=== PATIENT | female | born 1975 ===

== ENCOUNTER 2018-07-13 09:25 | Inpatient (IN) | payer MEDICARE ==
[2018-07-13 09:25] VITALS: BMI 30.2
[2018-07-13] MEDS ORDERED: Silver Sulfadiazine 1% Cream (20 gm) TOP STA (09:59)
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
[2018-07-13 12:00] LABS: BASO # 0.1 K/uL (0.0-0.2); BASO % 1.1 % (0.0-2.0); EOS # 0.1 K/uL (0.0-0.7); EOS % 1.4 % (0.0-4.0); HEMOGLOBIN 13.2 g/dL (12.0-16.0); LYMPH # 1.9 K/uL (1.0-4.3); LYMPH % 20.8 % (20.0-40.0); MEAN CELL VOLUME 93.9 fl (81.0-99.0); MEAN CORPUSCULAR HEMOGLOBIN 31.5 pg (27.0-31.0); MEAN CORPUSCULAR HGB CONC 33.5 g/dL (33.0-37.0); MEAN PLATELET VOLUME 9.2 fl (7.2-11.7); MONO # 0.8 K/uL (0.0-0.8); MONO % 8.5 % (0.0-10.0); NEUT # 6.4 K/uL (1.8-7.0); NEUT % 68.2 % (50.0-75.0); NRBC % 0.1 % (0.0-0.0); RBC 4.18 Mil/uL (3.80-5.20); RED CELL DISTRIBUTION WIDTH 13.8 % (11.5-14.5); WHITE BLOOD COUNT 9.4 K/uL (4.8-10.8)
[2018-07-13 12:16] LABS: BARBITURATES, UR NEGATIVE (NEGATIVE); BENZODIAZEPINES, UR NEGATIVE (NEGATIVE); OPIATES, UR NEGATIVE (NEGATIVE); PHENCYCLIDINE, UR POSITIVE (NEGATIVE)
[2018-07-13] MEDS ORDERED: Silver Sulfadiazine 1% CREAM (50 gm) ONE (13:28)
--- NOTE | 2018-07-13 16:39 | RAD ---
Date of service: 07/13/2018 HISTORY: psych med clr COMPARISON: No prior. FINDINGS: LUNGS: No active pulmonary disease. PLEURA: No significant pleural effusion identified, no pneumothorax apparent. CARDIOVASCULAR: No aortic atherosclerotic calcification present. Normal cardiac size. No pulmonary vascular congestion. OSSEOUS STRUCTURES: No significant abnormalities. VISUALIZED UPPER ABDOMEN: Normal. OTHER FINDINGS: None. IMPRESSION: No active disease.
[2018-07-13] MEDS ORDERED: Magnesium Hydroxide Susp 30 ml UD PO PRN (19:08)
[2018-07-13] MEDS ORDERED: Alum-Mag Hydrox-Simethicone Susp (30 mL) PO PRN (19:08)
[2018-07-13] MEDS ORDERED: DiphenhydrAMINE 50 mg/ml Inj IM PRN (19:08)
--- NOTE | 2018-07-13 19:40 | PCM.BM ---
<Naveed Ward - Last Filed: 07/13/18 19:28> Treatment Plan Problems - Problems identified on initial assessmt Hopelessness/Helplessness Date Initiated: 07/13/18 Time Initiated: 18:00 Assessment reference: NA medication nonadherence Date Initiated: 07/13/18 Time Initiated: 18:00 Assessment reference: NA Schitzophrenia Spectrum Date Initiated: 07/13/18 Time Initiated: 18:00 Assessment reference: NA Self Care Deficit Date Initiated: 07/13/18 Time Initiated: 18:00 Assessment reference: NA Treatment assets and liabiliti Patient Assests: ADL independent, negotiates basic needs, good past tx response Patient Liabilities: live alone, poor support system, relationship conflicts, substance abuse - Milieu Protocol Maintain good personal hygiene: every shift Encourage regular showers, every shift Remind patient to perform daily oral care, every shift Assist patient to perform ADL's Maintain personal safety: every shift Educate patient to report safety concerns to staff, every shift Monitor environment for contraband/sharps Medication safety: Monitor for expected outcome, potential side effects: every shift, Assess barriers to learning: every shift, Assess readiness for medication education: every shift <Shweta Nassar - Last Filed: 07/17/18 14:30> - Diagnosis (1) Schizoaffective disorder Status: Acute Interventions: pharmacotherapy 07/17/18 14:29
--- NOTE | 2018-07-14 13:17 | CARD ---
APPROVED REPORT Date of service: 07/13/2018 EKG Measurement Heart [id number] <Conclusion> Normal sinus rhythm Prolonged QT Abnormal ECG
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
[2018-07-15 02:00] VITALS: O2SAT 97
--- NOTE | 2018-07-15 11:59 | PCM.PYCHPN ---
Psychiatric Progress Note - Psychiatric Progress Note Patient seen today, length of contact: pt seen and evaluated Patient Chief Complaint: pt has been less paranoid and less anxious and c/o decrease in hallucinations with risperdal .pt remains with poor insight and need further stabilization. Medication Change: Yes (increase risperdal ) Medical Record Reviewed: Yes Mental Status Examination - Cognitive Function Orientation: Person, Place, Situation Memory: Intact Attention: Poor Concentration: Poor Association: WNL Fund of Knowledge: WNL - Mood Mood: Anxious - Affect Affect: Flat - Formal Thought Process Formal Thought Process: Hallucinations, Paranoia - Suicidal Ideation Suicidal Ideation: No - Homicidal Ideation Homicidal Ideation: No Goal/Treatment Plan - Goal/Treatment Plan Progress Toward Problem(s) and Goals/Treatment Plan: Will continue to titrate up risperdal and trileptal as pt does not want to take depakote and engage pt in therapy. Hospitalist consult..
--- NOTE | 2018-07-16 17:06 | PCM.PYCHPN ---
Psychiatric Progress Note - Psychiatric Progress Note Patient seen today, length of contact: chart reviewed case discussed with team Patient Chief Complaint: was not taking medications due to forgetting and because she thought that she was doing better. pt is noted to require frequent redirection, pt has submitted a 48 hour notice, staff report pt is rx adherent Problems Identified/Issues Discussed: alteration in cognition alteration in self care Medical Problems: per chart Diagnostic Results: per psychiatry per medicine per nursing per social work per recreational therapy DSM 5 Symptoms Update: paranoia ?cognition Medication Change: No Medical Record Reviewed: Yes Consults ordered or reviewed: pt being seen by hospitalist Mental Status Examination - Cognitive Function Orientation: Person, Place, Situation Memory: Intact Attention: Poor Concentration: Poor Association: WNL Fund of Knowledge: WNL Decription of patient's judgement and insights: impaired - Mood Mood: Anxious - Affect Affect: Flat - Speech Speech: Soft - Formal Thought Process Formal Thought Process: Hallucinations, Paranoia - Suicidal Ideation Suicidal Ideation: No - Homicidal Ideation Homicidal Ideation: No Goal/Treatment Plan - Goal/Treatment Plan Progress Toward Problem(s) and Goals/Treatment Plan: inpt milieu adjust medications per clinical status-pt has submitted a 48 hour notice today 07/18/18 1430- reviewed with pt significance inlcuding possible screening for possible [place] [facility] [place] may withdraw 48 hour notice - will increase seroquel to 250mg-pt also admits that has difficulty sleeping reports that po hs, obtain ekg in am assess qtc interval -discontinue trazodone pt has prn order diphenahydramine discharge planning in progress Estimated Date of D/C: 07/18/18 - Smoking Cessation Smoking Cessation Initiated: No Reason for not providing: pt defers
--- NOTE | 2018-07-17 10:14 | PCM.PYCHPN ---
Psychiatric Progress Note - Psychiatric Progress Note Patient seen today, length of contact: chart reviewed case discussed with team Patient Chief Complaint: I want to leave Problems Identified/Issues Discussed: pt is 43 ys old female with previous diagnosis of schizoaffective disorder , cocaine use and PCP use disorder, has not been compliant with medications or follow up pt presented to ED having auditory hallucinations, suicidal ideation, pt urine toxicology is positive for PCP and cocaine on the unit pt is disheveled , not attending to personal hygiene , floridly psychotic, disorganized thought process, appears internally preoccupied, responding to internal stimuli, loose association, no insight into illness requesting to be discharged DSM 5 Symptoms Update: schizoaffective disorder bipolar type PCP abuse cocaine abuse Medication Change: Yes (increase risperidone ) Medical Record Reviewed: Yes Mental Status Examination - Cognitive Function Orientation: Person, Place, Situation Memory: Intact Attention: Poor Concentration: Poor Association: Loose Fund of Knowledge: Poor - Mood Mood: Anxious - Affect Affect: Flat - Speech Speech: Pressured - Formal Thought Process Formal Thought Process: Hallucinations, Paranoia - Suicidal Ideation Suicidal Ideation: No - Homicidal Ideation Homicidal Ideation: No Goal/Treatment Plan - Goal/Treatment Plan Need for Continued Stay: Remain at risks for inpatient hospitalization, Discharge may exacerbated symptoms Progress Toward Problem(s) and Goals/Treatment Plan: pt floridly psychotic , disorganized internally preoccupied requesting to be discharged , no insight into illness pt will be screened for involuntary admission as she needs further stabilization cross taper seroquel with risperidone gradually CBT group and supportive therapy Estimated Date of D/C: 07/19/18
[2018-07-17 13:24] LABS: SQUAMOUS EPITHIAL 10 /hpf (0-5); URINE BACTERIA OCC (<OCC); URINE BILIRUBIN NEGATIVE (NEGATIVE); URINE BLOOD NEGATIVE (NEGATIVE); URINE CLARITY CLOUDY (Clear); URINE COLOR YELLOW (YELLOW); URINE GLUCOSE (UA) NEG (NEGATIVE); URINE LEUKOCYTE ESTERASE NEG Leu/uL (Negative); URINE PROTEIN 30 mg/dL (NEGATIVE); URINE UROBILINOGEN 0.2-1.0 mg/dL (0.2-1.0)
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
[2018-07-17] MEDS: Silver Sulfadiazine 1% Cream (20 gm) TOP SCH (16:14)
[2018-07-18] MEDS: Silver Sulfadiazine 1% Cream (20 gm) TOP SCH (08:47)
[2018-07-18 09:13] VITALS: BP 140/85; PULSE 72; RESP 16; TEMP 97.5
--- NOTE | 2018-07-18 09:13 | PCM.PYCHDC ---
Mental Status Examination - Mental Status Examination Orientation: Person, Place, Situation Memory: Intact Mood: Neutral Affect: Broad Speech: Appropriate Attention: WNL Concentration: WNL Association: WNL Fund of Knowledge: WNL Formal Thought Process: Circumstantial Description of patient's judgement and insight: poor insight and judgment Suicidal Ideation: No Current Homicidal Ideation?: No Discharge Summary - Discharge Note Reason for Hospitalization: as per admission note This is a 43 yr old AA female with h/o schizoaffective disorder d/c from [facility] ago and has been noncompliant with meds saying that depakote causes blood in her stool and pt has been actively hallucinating and unable to take care of self and need inpt stabilization. Laboratory Data: Abnormal Lab Results 07/17/18 12:50 Urine Color Yellow Urine Clarity Cloudy Urine pH 6.0 Ur Specific [place] 1.020 Urine Protein 30 Urine Glucose (UA) Neg Urine Ketones Negative Urine Blood Negative Urine Nitrate Negative Urine Bilirubin Negative Urine Urobilinogen 0.2-1.0 Ur Leukocyte Esterase Neg Urine RBC (Auto) 5 H Urine Microscopic WBC 3 Ur Squamous Epith Cells 10 H Urine Bacteria Occ H Consultations:: List each consultation separately and include: 1. Reason for request. 2. Findings. 3. Follow-up Summary of Hospital Course include:: 1. Description of specific treatment plan utilized for patients during their course of treatmen. 2. Summarize the time- course for resolution of acute symptoms and/or regressed behaviors. 3. Describe issues identified and worked on during hospitalization. 4. Describe medication utilized. 5. Describe medical problems identified and treated. 6. Reassessment of suicide risk Summary of Hospital Course: pt on admission was disheveled unkempt disorganized, depakote was discontinued and pt was started on trileptal and risperidone, on second day of admission pt requested to be discharged, signed 48 hour notice, pt was found to need further stabilization, was referred for screening for involuntary admission, pt was found not to meet criteria for involuntary admission, pt was discharged against medical advise, on discharge pt denied any current suicidal or homicidal ideation, denied command hallucinations, no reported side effects of medications - Diagnosis (1) Schizoaffective disorder Current Visit: Yes Status: Acute - Final Diagnosis (DSM 5) Condition upon Discharge: FAIR DSM 5: schizoaffective disorder bipolar type Disposition: AGAINST MEDICAL ADVICE Follow-up Treatment Plan: pt floridly psychotic , disorganized internally preoccupied requesting to be discharged , no insight into illness pt will be screened for involuntary admission as she needs further stabilization cross taper seroquel with risperidone gradually CBT group and supportive therapy Prescriptions/Medication Reconciliation: Benztropine [Cogentin] 1 mg PO HS 14 Days #15 tab Gabapentin [Neurontin] 300 mg PO TID 14 Days #45 cap OXcarbazepine [Trileptal] 300 mg PO BID 14 Days #30 tab risperiDONE [RisperDAL Tab] 3 mg PO HS 14 Days #14 tab - Antipsychotic Medications Pt discharged on 2 or more routine antipsychotic medications: No
== END 2018-07-18 11:47 | disposition left against medical advice (07) | DRG 885 ==
LOC: H.ER 09:25 → H.ERHOLD 14:36 → H.PSYCH 17:55
PROVIDERS: ADMIT Psychiatry & Neurology Psychiatry; ATTEND Psychiatry & Neurology Psychiatry
PROC: GZHZZZZ Group Psychotherapy (ICD-10-PCS; principal; 2018-07-13)
PROC: GZ58ZZZ Individual Psychotherapy, Cognitive-Behavioral (ICD-10-PCS; 2018-07-13)
PROC: HZ52ZZZ Individual Psychotherapy for Substance Abuse Treatment, Cognitive-Behavioral (ICD-10-PCS; 2018-07-13)
DX: F25.0 Schizoaffective disorder, bipolar type (principal); R45.851 Suicidal ideations; F14.10 Cocaine abuse, uncomplicated; F16.10 Hallucinogen abuse, uncomplicated; F12.10 Cannabis abuse, uncomplicated; F41.9 Anxiety disorder, unspecified; Z91.14 Patient's other noncompliance with medication regimen; Z91.19 Patient's noncompliance with other medical treatment and regimen; I12.9 Hypertensive chronic kidney disease with stage 1 through stage 4 chronic kidney disease, or unspecified chronic kidney disease; N18.9 Chronic kidney disease, unspecified; J45.909 Unspecified asthma, uncomplicated; D64.9 Anemia, unspecified; F17.210 Nicotine dependence, cigarettes, uncomplicated